=== PATIENT | female | born 1955 | race Caucasian/White ===

== ENCOUNTER 2018-02-03 05:18 | Emergency (ER) | payer SELFPAY ==
[2018-02-03] MEDS ORDERED: methylPREDNISolone Sod Succ/PF 125 MG/2 ML VIAL ONE (05:31)
[2018-02-03] MEDS ORDERED: Water For Inject, Bacteriostat 30 ML ONE (05:41)
[2018-02-03] MEDS ORDERED: Famotidine/PF 20 mg/2ml Vial SLOW IVP SCH (06:15)
== END 2018-02-03 07:17 | disposition home or self-care (01) ==
LOC: ERS 05:18
DX: T78.40XA Allergy, unspecified, initial encounter (principal); E78.00 Pure hypercholesterolemia, unspecified; I10 Essential (primary) hypertension; F41.9 Anxiety disorder, unspecified; Z79.899 Other long term (current) drug therapy
CPT/HCPCS: 93005; 96374; 96375; J2930; S0028

== ENCOUNTER 2019-09-15 09:55 | Outpatient (CLI) | payer MEDICAID, MEDICARE ==
--- NOTE | 2019-09-15 10:52 | BD ---
EXAM: DEXA bone density examination HISTORY: 64-year-old postmenopausal female for screening COMPARISON: None FINDINGS: L1--bone mineral density 1.045 g/sq cm; T score 0.5 L2--bone mineral density 0.923 g/sq cm; T score -1.0 L3--bone mineral density 1.001 g/sq cm; T score -0.8 L4--bone mineral density 0.957 g/sq cm; T score -0.9 Total L1-L4--bone mineral density 0.978 g/sq cm; T score -0.6 Left femoral neck--bone mineral density0.755; T score -0.8 Total proximal left femur--bone mineral density 0.936; T score 0.0 IMPRESSION: Normal bone density
--- NOTE | 2019-09-15 11:08 | MMO ---
Bilateral MAMMO Bilat Screen [facility]. CLINICAL HISTORY: Patient is 64 years old and is seen for screening. The patient has the following family history of breast cancer: maternal aunt, at age 38. The patient has no personal history of cancer. The patient has a history of left Excisional Biopsy at age 32 - benign. VIEWS: The views performed were: bilateral craniocaudal with tomosynthesis and bilateral mediolateral oblique with tomosynthesis. FILMS COMPARED: The present examination has been compared to prior imaging studies performed at [facility] on 07/03/2002 and 11/12/2007. This study has been interpreted with the assistance of computer-aided detection. MAMMOGRAM FINDINGS: The breasts are heterogeneously dense, which could obscure a lesion on mammography. There are stable benign appearing calcifications seen in both breasts. There are no suspicious masses, suspicious calcifications, or new areas of architectural distortion. IMPRESSION: THERE IS NO MAMMOGRAPHIC EVIDENCE OF MALIGNANCY. A ROUTINE FOLLOW-UP MAMMOGRAM IN 1 YEAR IS RECOMMENDED. THE RESULTS OF THIS EXAM WERE SENT TO THE PATIENT. ACR BI-RADS Category 2 - Benign finding MAMMOGRAPHY NOTE: 1. A negative mammogram report should not delay a biopsy if a dominant of clinically suspicious mass is present. 2. Approximately 10% to 15% of breast cancers are not detected by mammography. 3. Adenosis and dense breasts may obscure an underlying neoplasm. Reported by: SHAHEEN GARZA MD Electonically Signed: [id number]
== END 2019-09-15 09:56 | disposition home or self-care (01) ==
LOC: BICMAMMO 09:55
PROVIDERS: ATTEND Physician Assistant
DX: Z12.31 Encounter for screening mammogram for malignant neoplasm of breast (principal); M81.0 Age-related osteoporosis without current pathological fracture; Z80.3 Family history of malignant neoplasm of breast; Z91.89 Other specified personal risk factors, not elsewhere classified
CPT/HCPCS: 77063; 77067; 77080

== ENCOUNTER 2019-09-23 12:10 | Outpatient (CLI) | payer MEDICARE, MEDICAID ==
--- NOTE | 2019-09-23 12:37 | RAD ---
EXAM: 2 views of the left hip HISTORY: Left hip pain COMPARISON: 07/03/2017 FINDINGS: 2 views of the left hip shows no evidence of acute fracture or dislocation. No degenerative changes are seen. No soft tissue swelling is present. IMPRESSION: No evidence of acute osseous abnormality.
--- NOTE | 2019-09-23 12:38 | RAD ---
EXAM: 3 views of the right shoulder HISTORY: Shoulder pain COMPARISON: None FINDINGS: There is no evidence of acute fracture or dislocation. No degenerative changes are present. No soft tissue swelling is seen. The visualized thorax is unremarkable. IMPRESSION: No evidence of acute osseous abnormality.
--- NOTE | 2019-09-23 12:41 | RAD ---
EXAM: 3 views of the lumbosacral spine HISTORY: Low back pain COMPARISON: None FINDINGS: 3 views of the lumbosacral spine shows normal height and alignment of the vertebral bodies without fracture or subluxation. Mild intervertebral disc space narrowing and osteophyte formation is seen throughout the lumbar spine. The sacroiliac joints are unremarkable. IMPRESSION: Mild degenerative changes of lumbar spine without acute osseous abnormality
== END 2019-09-23 12:11 | disposition home or self-care (01) ==
LOC: BICRAD 12:10
PROVIDERS: ATTEND Family Medicine
DX: M25.511 Pain in right shoulder (principal); M47.816 Spondylosis without myelopathy or radiculopathy, lumbar region; M25.552 Pain in left hip
CPT/HCPCS: 72100

== ENCOUNTER 2019-10-13 12:01 | Outpatient (CLI) | payer MEDICARE, MEDICAID ==
--- NOTE | 2019-10-13 14:25 | MRI ---
LUMBAR SPINE MRI WITHOUT IV CONTRAST: 10/13/19 HISTORY: Lumbar radicular pain. Left leg pain. Multiplanar and multisequence MRI examination of the lumbar spine is performed. There is generalized disc desiccation changes and ligament and facet hypertrophic changes. Conus medullaris region is unre markable, terminating at inferior L1. No evidence for significant acute abnormal marrow signal. FINDINGS: T12-L1 disc: Unremarkable. L1-2 disc: Unremarkable. L2-3 disc: Unremarkable. L3-4 disc: Very mild lateral recess stenosis. L4-5 disc: Unremarkable. L5-S1 disc: Unremarkable. IMPRESSION: Mild disc desiccation changes and ligament and facet hypertrophic changes. No significant associated stenosis. POS: [facility]
== END 2019-10-13 12:02 | disposition home or self-care (01) ==
LOC: BICMRI 12:01
PROVIDERS: ATTEND Physician Assistant
DX: M47.26 Other spondylosis with radiculopathy, lumbar region (principal); M53.86 Other specified dorsopathies, lumbar region
CPT/HCPCS: 72148

== ENCOUNTER 2020-01-17 11:25 | Emergency (ER) | payer MEDICARE, MEDICAID ==
[2020-01-17] MEDS ORDERED: Morphine 4 MG/ML VIAL ONE ×2 (12:25→14:25)
[2020-01-17] MEDS ORDERED: Dexamethasone 4 mg/ml Vial ONE (12:26)
[2020-01-17] MEDS ORDERED: Ondansetron ODT 8 MG TAB ONE (12:26)
--- NOTE | 2020-01-17 13:40 | CT ---
LUMBAR CT SCAN WITHOUT IV CONTRAST: History: Worsening back pain radiating down to left knee for several months. Comparison: Lumbar spine, 10-13-2019. FINDINGS: There are some generalized disc osteophytosis and facet arthrosis changes. No evidence for significan t central canal or lateral recess or foraminal stenosis. No acute fracture or dislocation. IMPRESSION: Lumbar spondylosis. No significant associated stenosis. No significant change from MRI 10-13-2019. POS: [facility]
== END 2020-01-17 14:58 | disposition home or self-care (01) ==
LOC: ERS 11:25
DX: M54.41 Lumbago with sciatica, right side (principal); I10 Essential (primary) hypertension; E78.00 Pure hypercholesterolemia, unspecified; M19.90 Unspecified osteoarthritis, unspecified site; Z79.891 Long term (current) use of opiate analgesic; Z79.899 Other long term (current) drug therapy
CPT/HCPCS: 72131; 96372; J1100; J2270; Q0162

== ENCOUNTER 2021-12-21 12:29 | Emergency (ER) | payer MEDICARE, MEDICAID ==
[2021-12-21] MEDS ORDERED: Ketorolac Tromethamine 30 MG/ML VIAL ONE (14:49)
== END 2021-12-21 15:18 | disposition home or self-care (01) ==
LOC: ERS 12:29
DX: S93.401A Sprain of unspecified ligament of right ankle, initial encounter (principal); S80.02XA Contusion of left knee, initial encounter; I10 Essential (primary) hypertension; X50.1XXA Overexertion from prolonged static or awkward postures, initial encounter
CPT/HCPCS: J1885

== ENCOUNTER → 2022-12-05 | Outpatient (CLI) | payer MEDICARE, MEDICAID | LOC: SLEEPLAB 18:00 | PROVIDERS: ATTEND Nurse Practitioner Family | DX: G47.9 Sleep disorder, unspecified (principal); G47.33 Obstructive sleep apnea (adult) (pediatric) | CPT/HCPCS: 95800 ==

== ENCOUNTER 2023-06-27 14:06 | Outpatient (CLI) | payer MEDICARE, MEDICAID | END 2023-06-27 14:07 | disposition home or self-care (01) | LOC: BICCT 14:06 | PROVIDERS: ATTEND Nurse Practitioner Family | DX: K57.90 Diverticulosis of intestine, part unspecified, without perforation or abscess without bleeding (principal); R14.0 Abdominal distension (gaseous); K76.0 Fatty (change of) liver, not elsewhere classified; K57.30 Diverticulosis of large intestine without perforation or abscess without bleeding; N83.9 Noninflammatory disorder of ovary, fallopian tube and broad ligament, unspecified; J98.4 Other disorders of lung; Z90.710 Acquired absence of both cervix and uterus; Z90.49 Acquired absence of other specified parts of digestive tract | CPT/HCPCS: 74178; 82565 ==

== ENCOUNTER 2023-07-16 08:59 | Outpatient (CLI) | payer MEDICARE, MEDICAID ==
[2023-07-16] MEDS ORDERED: Iopamidol 370 76% 100 ML VIAL ONE (13:48)
== END 2023-07-16 09:00 | disposition home or self-care (01) ==
LOC: BICCT 08:59
PROVIDERS: ATTEND Nurse Practitioner Family
DX: J98.4 Other disorders of lung (principal); N83.8 Other noninflammatory disorders of ovary, fallopian tube and broad ligament; R93.89 Abnormal findings on diagnostic imaging of other specified body structures; J98.8 Other specified respiratory disorders; I25.10 Atherosclerotic heart disease of native coronary artery without angina pectoris; K44.9 Diaphragmatic hernia without obstruction or gangrene; N83.202 Unspecified ovarian cyst, left side
CPT/HCPCS: 71260; 76856; 93976; Q9967